=== PATIENT | female | born 1960 | race Caucasian/White ===

== ENCOUNTER 2016-09-26 09:10 | Emergency (ER) | payer BC ==
[2016-09-26 09:52] VITALS: BP 122/89
[2016-09-26] MEDS ORDERED: Ondansetron ODT TAB* 4 MG PO ONE (10:02)
[2016-09-26] MEDS ORDERED: Ketorolac INJ* 30 MG/ML 1 ML VIAL IM ONE (10:02)
--- NOTE | 2016-09-26 10:34 | UC ---
Headache HPI - HPI Summary HPI Summary: patient is having a migraine has them this time every year, nausea as well. - History Of Current Complaint Chief Complaint: UCHeadache Stated Complaint: MIGRAINE Time Seen by Provider: 09/26/16 09:41 Hx Obtained From: Patient Hx Last Menstrual Period: 1996~ ?: No Onset/Duration: Sudden Onset, Lasting Weeks Onset Of Symptoms: Gradual Initially Headache Was: Initial Pain Scale(0-10)= - 5 Currently Pain Is: Current Pain Scale(0-10)= - 8 Pain Scale Used: 0-10 Numeric Timing: Constant Character: Migraine Location of Headache: Parietal Aggravating Factor: Exertion, Bright Lights Allevating Factors: Nothing Associated Signs And Symptoms: Positive: Nausea - Risk Factors SAH Risk Factors: Negative Meningitis Risk Factors: Negative SDH Risk Factors: Negative - Allergies/Home Medications Allergies/Adverse Reactions: Allergies Allergy/AdvReac Type Severity Reaction Status Date / Time Penicillins Allergy Severe ANAPHYLACTI Verified 02/05/15 13:23 C methotrexate Allergy See Comment Uncoded 09/26/16 09:52 PMH/Surg Hx/FS Hx/Imm Hx Previously Healthy: Yes Endocrine History Of: Denies: Diabetes, Thyroid Disease Cardiovascular History Of: Reports: Cardiac Disorders - ablation Respiratory History Of: Reports: Asthma - Surgical History Surgical History: Yes Surgery Procedure, Year, and Place: HYSTERECTOMY, APPY, cholecystectomy - Family History Known Family History: Negative: Hypertension - Social History Alcohol Use: None Substance Use Type: None Smoking Status (MU): Heavy Every Day Tobacco Smoker Type: Cigarettes Amount Used/How Often: 1 pack day Review of Systems Constitutional: Negative Skin: Negative Eyes: Negative ENT: Negative Respiratory: Negative Cardiovascular: Negative Gastrointestinal: Other - nausea Genitourinary: Negative Motor: Negative Neurovascular: Negative Musculoskeletal: Negative Neurological: Headache Psychological: Negative All Other Systems Reviewed And Are Negative: Yes Physical Exam Triage Information Reviewed: Yes Appearance: Well-Nourished, Ill-Appearing, Pain Distress Vital Signs: Initial Vital Signs Temp 99 F 09/26/16 09:45 Pulse 76 09/26/16 09:45 Resp 18 09/26/16 09:45 BP 122/89 09/26/16 09:45 Pulse Ox 94 09/26/16 09:45 Vital Signs Reviewed: Yes Eye Exam: Normal Eyes: Positive: Conjunctiva Clear ENT Exam: Normal ENT: Positive: Normal ENT inspection, Hearing grossly normal, Pharynx normal, TMs normal Dental Exam: Normal Neck exam: Normal Neck: Positive: Supple, Nontender, No Lymphadenopathy Respiratory Exam: Normal Respiratory: Positive: Chest non-tender, Lungs clear, Normal breath sounds Cardiovascular Exam: Normal Cardiovascular: Positive: RRR, No Murmur, Pulses Normal Abdominal Exam: Normal Abdomen Description: Positive: Nontender, No Organomegaly, Soft Bowel Sounds: Positive: Present Musculoskeletal Exam: Normal Musculoskeletal: Positive: Strength Intact, ROM Intact Neurological Exam: Normal Neurological: Positive: Other: - PERRLA, EOMI, Moves all extermities without difficulty Psychological Exam: Normal Skin Exam: Normal Headache Course/Dx - Course Course Of Treatment: hx obtained, exam performed, toradol and zofran given with good results. no meds prescribed. - Differential Dx/Diagnosis Differential Diagnosis/HQI/PQRI: CVA, Migraine, Sinus Headache, Tension Headache Provider Diagnoses: migraine. nausea Discharge - Discharge Plan Condition: Stable Disposition: HOME Patient Education Materials: Migraine Headache (ED) Additional Instructions: get some rest, increase fluid intake, follow up with any increase in symtpoms.
== END 2016-09-26 10:50 | disposition home or self-care (01) ==
LOC: UCCORT 09:10
DX: G43.909 Migraine, unspecified, not intractable, without status migrainosus (principal); R11.0 Nausea; Z88.0 Allergy status to penicillin; Z88.8 Allergy status to other drugs, medicaments and biological substances; F17.210 Nicotine dependence, cigarettes, uncomplicated
CPT/HCPCS: 96372; 99212; A9270-GY; G0463; J1885

== ENCOUNTER 2017-05-08 16:59 | Emergency (ER) | payer BC ==
[2017-05-08 17:08] VITALS: BP 119/70
[2017-05-08] MEDS ORDERED: Triamcinolone Acetonide* 40 MG/ML 1 ML VIAL ONE (17:45)
--- NOTE | 2017-05-08 17:48 | RAD ---
INDICATION: Atraumatic right knee pain x1 week COMPARISON: None TECHNIQUE: 2 view radiograph of the right knee. FINDINGS: The visualized bones are well-corticated and properly aligned. The joint spaces are properly maintained. There is no radiographic evidence of joint effusion. There is no acute fracture, dislocation or other focal bony abnormality. IMPRESSION: Normal knee radiograph as described above. If the patient's symptoms persist, follow-up imaging is recommended.
--- NOTE | 2017-05-08 17:53 | UC ---
Lower Extremity/Ankle HPI - HPI Summary HPI Summary: She has rheumatoid arthritis and gets every two weeks she gets humira. 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 She has no DM, no fever, no chills. no prior surgery to that knee. she has had injection before and has done well with it. - History of Current Complaint Chief Complaint: UCLowerExtremity Stated Complaint: RIGHT KNEE PAIN Time Seen by Provider: 05/08/17 17:14 Hx Obtained From: Patient Hx Last Menstrual Period: n/a ?: No Onset/Duration: Gradual Onset, Lasting Days Severity Initially: Moderate Severity Currently: Moderate Aggravating Factor(s): Standing, Ambulation Alleviating Factor(s): Rest, Elevation Able to Bear Weight: Yes - Allergies/Home Medications Allergies/Adverse Reactions: Allergies Allergy/AdvReac Type Severity Reaction Status Date / Time Penicillins Allergy Severe ANAPHYLACTI Verified 05/08/17 17:08 C methotrexate Allergy See Comment Uncoded 05/08/17 17:08 Home Medications: Home Medications Adalimumab (NF) [Humira Pen (NF)] 40 mg SUBCUT SEE INSTRUCTIONS 05/08/17 [ History Confirmed 05/08/17] PMH/Surg Hx/FS Hx/Imm Hx Previously Healthy: No - rheumatoid arthritis. - Surgical History Surgical History: Yes Surgery Procedure, Year, and Place: HYSTERECTOMY, APPY, cholecystectomy - Family History Known Family History: Negative: Hypertension - Social History Alcohol Use: None Substance Use Type: None Smoking Status (MU): Heavy Every Day Tobacco Smoker Type: Cigarettes Amount Used/How Often: 1 pack day - Immunization History Most Recent Influenza Vaccination: yes 2016 Review of Systems All Other Systems Reviewed And Are Negative: Yes Physical Exam Triage Information Reviewed: Yes Appearance: Well-Appearing, No Pain Distress, Well-Nourished Vital Signs: Initial Vital Signs Temp 98.5 F 05/08/17 17:03 Pulse 78 05/08/17 17:03 Resp 18 05/08/17 17:03 BP 119/70 05/08/17 17:03 Pulse Ox 100 05/08/17 17:03 Vital Signs Reviewed: Yes Eye Exam: Normal Eyes: Positive: Conjunctiva Clear ENT: Positive: Normal ENT inspection Neck: Positive: Supple, Nontender, No Lymphadenopathy Respiratory: Positive: No respiratory distress, No accessory muscle use Cardiovascular: Positive: RRR, No Murmur, Pulses Normal Abdomen Description: Negative: Distended Musculoskeletal Exam: Other - right knee has moderate effusion. NO redness and not hot. There is no pain with passive rom. Joint is tight without any laxity. Neurological: Positive: Alert, Muscle Tone Normal. Negative: Fatigued Psychological: Positive: Age Appropriate Behavior Procedures - Procedure Summary Procedure Summary: right knee paper and verbal consent. Time out. Sterile technique and betadine prep x 3. 22 guage needle used with 20cc syringe use to aspirate knee and fluid was clear and anthony colored with pos string sign. Same needle was used to inject 10cc of lidocaine 2% mixed with 40mg of kenalog. No complications. one attempt. Lower Extremity Course/Dx - Course Course Of Treatment: no clinical signs of joint infection. we will send fluid off for cell count, culture but mainly look for uric acid crystals. x ray does not show loose bodies. - Differential Dx/Diagnosis Provider Diagnoses: right knee pain and effusion. joint aspiration. joint steroid kenalog injection. Discharge - Discharge Plan Condition: Good Disposition: HOME Patient Education Materials: Triamcinolone (By injection) Referrals: Juan Cummings DO [Primary Care Provider] - As Soon As Possible
[2017-05-08] MEDS ORDERED: Lidocaine 2% 10 ML* VIAL INJ ONE (18:05)
[2017-05-08] MEDS ORDERED: Lidocaine 2% PF * 5 ML VIAL ONE (18:09)
[2017-05-08 20:50] LABS: Add Path Review? NO
[2017-05-08 21:04] LABS: Body Fluid Appearance Clear; Body Fluid Total Cells Counted 100
[2017-05-08 21:07] LABS: Body Fluid WBC 541 /mcL
--- NOTE | 2017-05-10 07:44 | UC ---
Progress - Progress Note Progress Note: CALL PATIENT. SEE HOW KNEE IS DOING. IF WORSE ER.
[2017-05-10 12:21] LABS: Glucose, BF 93 mg/dL
== END 2017-05-08 18:37 | disposition home or self-care (01) ==
LOC: UCCORT 16:59
DX: M06.9 Rheumatoid arthritis, unspecified (principal); F17.210 Nicotine dependence, cigarettes, uncomplicated; Z88.0 Allergy status to penicillin; Z88.8 Allergy status to other drugs, medicaments and biological substances
CPT/HCPCS: 20610; 36415; 82945; 83615; 87070; 87205; 87640; 87641; 89051; 89060; 99211; G0463; J2001; J3301